=== PATIENT | male | born 1975 | race Caucasian/White ===

== ENCOUNTER 2024-09-26 11:13 | Emergency (ER) | payer OTHER, SELFPAY ==
--- OUTSIDE RECORDS SUMMARY | 2024-09-26 11:17 | XMS REPORT | Continuity of Care Document ---
Author Name Unknown Address [address] [facility] [place] [address] [facility] [place] Address [address] [facility] [place] [address] Care Team Providers Care Tire Stripper Name Role Phone Halle TABOR, Nikki Primary Care Physic dhara [phone] Problems Condition Name Condition Details Condition Category Status Onset Date Resolution Date Last Treatment Date Treating Clinician Comments Source Elevated blood pressure reading in office with white coat syndrome, with diagnosis of hypertensi on Elevated blood pressure reading in office with white coat syndrome, with diagnosis of hypertensi on Problem Active [facility] Fatty liver Fatty liver Problem Active [facility] BMI 32.0-32.9, adult BMI 32.0-32.9, adult Problem Active [facility] Allergic rhinitis Allergic rhinitis Problem Active [facility] Elevated liver enzymes Elevated liver enzymes Problem Active [facility] Hyperlipid emia Hyperlipid emia Problem Active [facility] GERD (gastroeso phageal reflux disease) GERD (gastroeso phageal reflux disease) Problem Active [facility] Migraine without aura Migraine without aura Problem Active [facility] Allergies, Adverse Reactions, Alerts Allergy Name Allergy Type Status Severity Reaction(s) Onset Date Inactive Date Treating Clinician Comments Source Sulfa (Sulfona mide Antibiot ics) Propensi ty to adverse reaction to drug Active 01-23 00:00: 00 Rock Stanford Sulfa Antibiot ics - CLASS Propensi ty to adverse reaction to drug Active 5-15 00:00: 00 Rock Stanford Sulfa Adverse Reaction Active Info Not Available [facility] PCN Adverse Reaction Active Info Not Available [facility] Medications Ordered Medication Name Filled Medication Name Start Date Stop Date Current Medication? Ordering Clinician Indication Dosage Frequency Signature (SIG) Comments Components Source diclofenac 1 % topical gel 07-25 00:00: 00 Yes 1% Rock [facility] amlodipine 5 mg tablet 07-24 00:00: 00 Yes 1mg Rock [facility] lisinopril 10 mg tablet 07-24 00:00: 00 Yes 1mg Rock [facility] metformin 500 mg tablet 07-24 00:00: 00 Yes 1mg Rock Stanford pravastatin 10 mg tablet 07-24 00:00: 00 Yes 1mg [facility] amlodipine 5 mg tablet 2023-06 00:00: 00 Yes 1mg Rock [facility] lisinopril 10 mg tablet 2023-06 00:00: 00 Yes 1mg Rock [facility] metformin 500 mg tablet 2023-06 00:00: 00 Yes 1mg Rock [facility] pravastatin 10 mg tablet 2023-06 0 00:00: 00 Yes 1mg Rock [facility] pravastatin 10 mg tablet 8 00:00: 00 Yes 1mg Rock [facility] amlodipine 5 mg tablet 01-19 00:00: 00 Yes 1mg Rock [facility] lisinopril 10 mg tablet 01-19 00:00: 00 Yes 1mg Rock [facility] metformin 500 mg tablet 01-19 00:00: 00 Yes 1mg Rock [facility] TAKE 1 TABLET DAILY. 07-28 00:00: 00 Yes 10 Rock [facility] TAKE 1 TABLET TWICE DAILY WITH FOOD. 07-28 00:00: 00 Yes 500 Rock [facility] TAKE 1 TABLET BY MOUTH EVERY DAY 07-28 00:00: 00 Yes 5 [facility] METFORMIN 500MG 07-20 00:00: 00 11-02 00:00 :00 No [facility] LISINOPRIL 10MG 2022-06 00:00: 00 11-02 00:00 :00 No 10 Rock [facility] TAKE 1 TABLET TWICE DAILY WITH FOOD. 2022-06 0-18 00:00: 00 11-02 00:00 :00 No 500 [facility] TAKE 1 TABLET TWICE DAILY WITH FOOD. 01-24 00:00: 00 11-02 00:00 :00 No 500 Rock [facility] METFORMIN 500MG 7- 00:00: 00 11-02 00:00 :00 No Rock [facility] TAKE 1 TABLET BY MOUTH EVERY DAY 0 7- 00:00: 00 11-02 00:00 :00 No 5 Rock [facility] AMLODIPINE 5MG -06 00:00: 00 11-02 00:00 :00 No 5000 Rock Stanford TAKE 1 TABLET DAILY. 12-30 00:00: 00 11-02 00:00 :00 No 10 Rock [facility] TAKE 1 TABLET DAILY 08 00:00: 00 11-02 00:00 :00 No [facility] AMLODIPINE 5MG -06 00:00: 00 11-02 00:00 :00 No Rock [facility] TAKE 1 TABLET BY MOUTH EVERY DAY 0 5-15 00:00: 00 11-02 00:00 :00 No 5 [facility] LISINOPRIL 10MG 0 5-12 00:00: 00 11-02 00:00 :00 No [facility] Amlodipine Besylate Amlodipine Besylate 6-05 00:00: 00 Yes Na Driscoll 1 tablet [facility] Lisinopril Lisinopril 2018-1 0-24 00:00: 00 Yes Na Driscoll 1 tablet [facility] Lisinopril Lisinopril Yes Na Driscoll TA KE 1 TABLET BY MOUTH EVERY DAY [facility] Prilosec Prilosec Yes Na Driscoll 1 capsule [facility] Lisinopril Lisinopril Yes Na Driscoll 1 tablet [facility] Vital Signs Vital Name Observation Time Observation Value Comments S suzie BP Systolic 2024-07-24 10:19:00 147 mm[Hg] Step hen F Abdoulaye BP Diastolic 2024-07-24 10:19:00 100 mm[Hg] Matthew phen F Abdoulaye Weight Measured 2024-07-24 10:19:00 212.60 pounds Rock F Abdoulaye Height Measured 2024-07-24 10:19:00 68.90 inches Rock F Abdoulaye Body Temperature 2024-07-24 10:19:00 99.10 degrees Rock F Abdoulaye Heart Rate 2024-07-24 10:19:00 101.00 /min Step hen F Abdoulaye Respiratory Rate 2024-07-24 10:19:00 Rock F Abdoulaye BP Systolic 2024-04-17 10:18:00 141 mm[Hg] Step hen F Abdoulaye BP Diastolic 2024-04-17 10:18:00 84 mm[Hg] Matthew phen F Abdoulaye Weight Measured 2024-04-17 10:18:00 208.60 pounds Rock F Abdoulaye Height Measured 2024-04-17 10:18:00 68.90 inches Rock F Abdoulaye Body Temperature 2024-04-17 10:18:00 97.90 degrees Rock F Abdoulaye Heart Rate 2024-04-17 10:18:00 89.00 /min Darlene en F Abdoulaye Respiratory Rate 2024-04-17 10:18:00 Rock F Abdoulaye BP Systolic 2024-01-24 09:24:00 137 mm[Hg] Step hen F Abdoulaye BP Diastolic 2024-01-24 09:24:00 88 mm[Hg] Matthew phen F Abdoulaye Weight Measured 2024-01-24 09:24:00 204.60 pounds Rock F Abdoulaye Height Measured 2024-01-24 09:24:00 68.90 inches Rock F Abdoulaye Body Temperature 2024-01-24 09:24:00 97.20 degrees Rock F Abdoulaye Heart Rate 2024-01-24 09:24:00 67.00 /min Darlene en F Abdoulaye Respiratory Rate 2024-01-24 09:24:00 Rock F Abdoulaye BP Systolic 2023-07-28 11:00:00 122 mm[Hg] Step hen F Abdoulaye BP Diastolic 2023-07-28 11:00:00 69 mm[Hg] Matthew phen F Abdoulaye Weight Measured 2023-07-28 11:00:00 197.20 pounds Rock F Abdoulaye Height Measured 2023-07-28 11:00:00 68.90 inches Rock F Abdoulaye Body Temperature 2023-07-28 11:00:00 98.60 degrees Rock F Abdoulaye Heart Rate 2023-07-28 11:00:00 89.00 /min Darlene en F Abdoulaye Respiratory Rate 2023-07-28 11:00:00 Rock F Abdoulaye BP Systolic 2023-04-14 11:15:00 138 mm[Hg] Step hen F Abdoulaye BP Diastolic 2023-04-14 11:15:00 91 mm[Hg] Matthew phen F Abdoulaye Weight Measured 2023-04-14 11:15:00 212.40 pounds Rock F Abdoulaye Height Measured 2023-04-14 11:15:00 68.90 inches Rock F Abdoulaye Body Temperature 2023-04-14 11:15:00 98.10 degrees Rock F Abdoulaye Heart Rate 2023-04-14 11:15:00 90.00 /min Darlene en F Abdoulaye Respiratory Rate 2023-04-14 11:15:00 Rock F Abdoulaye BP Systolic 2023-01-27 14:10:00 144 mm[Hg] Step hen F Abdoulaye BP Diastolic 2023-01-27 14:10:00 88 mm[Hg] Matthew phen F Abdoulaye Weight Measured 2023-01-27 14:10:00 209.20 pounds Rock F Abdoulaye Height Measured 2023-01-27 14:10:00 68.90 inches Rock F Abdoulaye Body Temperature 2023-01-27 14:10:00 97.70 degrees Rock F Abdoulaye Heart Rate 2023-01-27 14:10:00 97.00 /min Darlene en F Abdoulaye Respiratory Rate 2023-01-27 14:10:00 18.00 /min Rock F Abdoulaye BP Systolic 2023-01-20 16:02:00 141 mm[Hg] Step hen F Abdoulaye BP Diastolic 2023-01-20 16:02:00 94 mm[Hg] Matthew phen F Abdoulaye Weight Measured 2023-01-20 16:02:00 209.20 pounds Rock F Abdoulaye Height Measured 2023-01-20 16:02:00 68.90 inches Rock F Abdoulaye Body Temperature 2023-01-20 16:02:00 97.60 degrees Rock [facility] Heart Rate 2023-01-20 16:02:00 107.00 /min Burt Stanford Respiratory Rate 2023-01-20 16:02:00 Rock [facility] BP Systolic 2022-11-09 09:10:00 157 mm[Hg] Burt Stanford BP Diastolic 2022-11-09 09:10:00 115 mm[Hg] Matthew Stanford Weight Measured 2022-11-09 09:10:00 214.20 pounds Rock Stanford Height Measured 2022-11-09 09:10:00 68.90 inches Rock Stanford Body Temperature 2022-11-09 09:10:00 97.80 degrees Rock Stanford Heart Rate 2022-11-09 09:10:00 110.00 /min Burt Stanford Respiratory Rate 2022-11-09 09:10:00 [facility] Procedures Procedure Date / Time Performed Performing Clinicia n Source [id number] Ekg W/ At Least 12 Leads W/ I r 2022-11-09 00:00:00 Rock [facility] Encounters Start Date/Time End Date/Time Encounter Type Admission Type Attending [facility] Facility Care Department Encounter ID Source 2024-09-26 10:29:46 2024-09-26 10:29:46 Outpatient [facility] [id number] Rock [facility] 2024-07-24 10:18:41 2024-07-24 10:18:41 Outpatient [facility] [id number] Rock [facility] 2024-07-24 00:00:00 2024-07-24 00:00:00 Outpatient Visit [facility] [id number] Rock [facility] 2024-04-17 10:17:30 2024-04-17 10:17:30 Outpatient [facility] [id number] Rock Stanford 2024-04-17 00:00:00 2024-04-17 00:00:00 Outpatient Visit [facility] [id number] Rock [facility] 2024-01-24 09:12:12 2024-01-24 09:12:12 Outpatient [facility] [id number] Rock [facility] 2024-01-24 00:00:00 2024-01-24 00:00:00 Outpatient Visit [facility] [id number] Rock [facility] 2023-07-28 10:35:07 2023-07-28 10:35:07 Outpatient [facility] [id number] Rock Stanford 2023-04-14 11:02:17 2023-04-14 11:02:17 Outpatient [facility] [id number] Rock Stanford 2023-01-27 14:07:45 2023-01-27 14:07:45 Outpatient [facility] [id number] Rock Stanford 2023-01-20 15:57:38 2023-01-20 15:57:38 Outpatient [facility] [id number] Rock [facility] 2022-11-09 09:06:12 2022-11-09 09:06:12 Outpatient [facility] [id number] Rock Stanford 2018-11-30 11:00:00 2018-11-30 11:00:00 Outpatient [facility] [id number] [facility] Results Test Description Test Time Test Comments Results Result Co mments Source LIPID [id number] 05:12:34* Test Item Value Reference Range Interpretation Comme nts CHOLESTEROL (test code = 2210) 230 MG/DL <200 H TRIGLYCERIDES (test code = 2232) 188 MG/DL <150 H HDL CHOLESTEROL (test code = 2220) 37 MG/DL >39 L CALC LDL CHOL (test code = 2237) 159 MG/DL <100 H NOTE: CALCULATED LDL IS BASED ON ALAN-GUILLEN METHOD WHICHINCLUDES ADJUSTABLE TRIGLYCERIDE:VLDL CHOLESTEROL RATIO.THIS FACTOR VARIES BY MEASURED TRIGLYCERIDE AND NON-HDLCHOLESTEROL CONCENTRATIONS WITH INCREASED CALCULATED LDL SEENIN HIGHER TRIGLYCERIDE OR LOWER NON-HDL SPECIMENS. FOR MOREINFORMATION, SEE CLIENT ANNOUNCEMENT AT [email or web address] [email or web address] RATIO LDL/HDL (test code = 2238) 4.30 RATIO <3.55 H UNLESS OTHERW ISE INDICATED, ALL TESTING PERFORMED AT [facility] [address] [place] [address] MACHINE FARMWORKER: MIRZA ACEVES M.D. IA NUMBER [id number] [place]. [id number] HEMOGLOBIN [id number] 03:14:37* Test Item Value Reference Range Interpretation Comme nts HEMOGLOBIN A1c (test code = 62849) 6.0 % 4.2-5.6 H [employer] GUIDELINES FOR HGB A1C: PREDIABETES/INCREASED RISK . . . . . . . 5.7-6.4% DIAGNOSIS OF DIABETES . . . . . . . . . >=6.5% WITH CONFIRMATION OR APPROPRIATE SYMPTOMS NOTE: ASSAY MAY BE AFFECTED BY HEMOGLOBINOPATHIES (SICKLE CELL ANEMIA, S-C DISEASE, OTHERS) OR ARTIFICIALLY LOWERED BY DECREASED RED CELL SURVIVAL (HEMOLYTIC ANEMIAS, BLOOD LOSS, ETC.). CONSIDER ALTERNATE TESTING OR LABORATORY CONSULTATION. COMPREHENSIVE METABOLIC [id number] 00:00:00* Test Item Value Reference Range Interpretation Comme nts GLUCOSE (test code = 2217) 119 MG/DL BUN (test code = 2208) 19 MG/DL CREATININE (test code = 2214) 1.35 MG/DL eGFR (2020 CKD-EPI) (test co de = 67249) 64 ML/MIN/1.73 CALC BUN/CREAT (test code = 2235) 14 RATIO SODIUM (test code = 2231) 140 MEQ/L POTASSIUM (test code = 2228) 4.4 MEQ/L CHLORIDE (test code = 2215) 101 MEQ/L CARBON DIOXIDE (test code = 2206) 27 MEQ/L CALCIUM (test code = 2209) 9.9 MG/DL PROTEIN, TOTAL (test code = 2229) 7.4 G/DL ALBUMIN (test code = 2201) 4.7 G/DL CALC GLOBULIN (test code = 2240) 2.7 G/DL CALC A/G RATIO (test code = 2234) 1.7 RATIO BILIRUBIN, TOTAL (test code = 2207) 0.8 MG/DL ALKALINE PHOSPHATASE (test code = 2204) 54 U/L AST (test code = 2218) 27 U/L ALT (test code = 2219) 34 U/L Rock F AustinHEMOGLOBIN [id number] 00:00:00* Test Item Value Reference Range Interpretation Comme moe HEMOGLOBIN A1c (test code = 06134) 6.0 % Rock StanfordLIPID [id number] 00:00:00* Test Item Value Reference Range Interpretation Comme nts CHOLESTEROL (test code = 2210) 230 MG/DL TRIGLYCERIDES (test code = 2232) 188 MG/DL HDL CHOLESTEROL (test code = 2220) 37 MG/DL CALC LDL CHOL (test code = 2237) 159 MG/DL RISK RATIO LDL/HDL (test cod e = 2238) 4.30 RATIO Rock StanfordALBUMIN/CREATININE RATIO, URINE, [id number] 05:49:27* Test Item Value Reference Range Interpretation Comme nts CREATININE, URINE, CONC. (test code = 2072) 236.0 MG/DL NOT ESTAB ALBUMIN, URINE, RANDOM (test code = 76388) 56.0 MG/DL NOT ESTAB CALC ALBUMIN/CREAT, RND (test code = 72156) 237 MG/G <30 H Note: Albumin/Creatinine ratio reference interval reflects ADA and NKF guidelines. HEMOGLOBIN [id number] 04:08:30* Test Item Value Reference Range Interpretation Comme nts HEMOGLOBIN A1c (test code = 50960) 5.7 % 4.2-5.6 H [employer] GUIDELINES FOR HGB A1C: PREDIABETES/INCREASED RISK . . . . . . . 5.7-6.4% DIAGNOSIS OF DIABETES . . . . . . . . . >=6.5% WITH CONFIRMATION OR APPROPRIATE SYMPTOMS NOTE: ASSAY MAY BE AFFECTED BY HEMOGLOBINOPATHIES (SICKLE CELL ANEMIA, S-C DISEASE, OTHERS) OR ARTIFICIALLY LOWERED BY DECREASED RED CELL SURVIVAL (HEMOLYTIC ANEMIAS, BLOOD LOSS, ETC.). CONSIDER ALTERNATE TESTING OR LABORATORY CONSULTATION. HIV 1/2 4TH GEN, RFLX [id number] 03:55:04* Test Item Value Reference Range Interpretation Comme nts HIV 1/2 4TH GEN, RFLX CONF (test code = 3514) NON-REACTIVE NON-REACTIVE UNLESS OTHERWISE INDICATED, ALL TESTING PERFORMED AT [facility] [address] [place] [address] MACHINE FARMWORKER: MIRZA ACEVES M.D. CLIA NUMBER [id number] [place]. [id number] COMPREHENSIVE METABOLIC [id number] 03:33:13* Test Item Value Reference Range Interpretation Comme nts GLUCOSE (test code = 2217) 102 MG/DL 70-99 H BUN (test code = 220) 14 MG/DL 6-20 CREATININE (test code = 2214) 1.27 MG/DL 0.80-1.40 eGFR (2020 CKD-EPI) (test co de = 16612) 69 ML/MIN/1.73 >60 CALC BUN/CREAT (test code = 2235) 11 RATIO 6-28 SODIUM (test code = 223) 139 MEQ/L 133-146 POTASSIUM (test code = 2228) 4.3 MEQ/L 3.5-5.4 CHLORIDE (test code = 2215) 100 MEQ/L 95-107 CARBON DIOXIDE (test code = 2206) 24 MEQ/L 19-31 CALCIUM (test code = 2209) 10.1 MG/DL 8.5-10.5 PROTEIN, TOTAL (test code = 2229) 7.4 G/DL 6.1-8.3 ALBUMIN (test code = 2201) 4.7 G/DL 3.5-5.2 CALC GLOBULIN (test code = 2240) 2.7 G/DL 1.9-3.7 CALC A/G RATIO (test code = 2234) 1.7 RATIO 1.0-2.6 BILIRUBIN, TOTAL (test code = 2207) 0.6 MG/DL <=1.2 ALKALINE PHOSPHATASE (test code = 2204) 52 U/L 40-118 AST (test code = 2218) 24 U/L 9-50 ALT (test code = 2219) 29 U/L 5-50 LIPID [id number] 03:33:13* Test Item Value Reference Range Interpretation Comme nts CHOLESTEROL (test code = 2210) 216 MG/DL <200 H TRIGLYCERIDES (test code = 2232) 194 MG/DL <150 H HDL CHOLESTEROL (test code = 2220) 43 MG/DL >39 CALC LDL CHOL (test code = 2237) 140 MG/DL <100 H NOTE: CALCULATED LDL IS BASED ON ALAN-GUILLEN METHOD WHICHINCLUDES ADJUSTABLE TRIGLYCERIDE:VLDL CHOLESTEROL RATIO.THIS FACTOR VARIES BY MEASURED TRIGLYCERIDE AND NON-HDLCHOLESTEROL CONCENTRATIONS WITH INCREASED CALCULATED LDL SEENIN HIGHER TRIGLYCERIDE OR LOWER NON-HDL SPECIMENS. FOR MOREINFORMATION, SEE CLIENT ANNOUNCEMENT AT [email or web address] [email or web address] RATIO LDL/HDL (test code = 2238) 3.26 RATIO <3.55 COMPREHENSIVE METABOLIC [id number] 00:00:00* Test Item Value Reference Range Interpretation Comme nts GLUCOSE (test code = 2217) 102 MG/DL BUN (test code = 2208) 14 MG/DL CREATININE (test code = 2214) 1.27 MG/DL eGFR (2020 CKD-EPI) (test co de = 76065) 69 ML/MIN/1.73 CALC BUN/CREAT (test code = 2235) 11 RATIO SODIUM (test code = 2231) 139 MEQ/L POTASSIUM (test code = 2228) 4.3 MEQ/L CHLORIDE (test code = 2215) 100 MEQ/L CARBON DIOXIDE (test code = 2206) 24 MEQ/L CALCIUM (test code = 2209) 10.1 MG/DL PROTEIN, TOTAL (test code = 2229) 7.4 G/DL ALBUMIN (test code = 2201) 4.7 G/DL CALC GLOBULIN (test code = 2240) 2.7 G/DL CALC A/G RATIO (test code = 2234) 1.7 RATIO BILIRUBIN, TOTAL (test code = 2207) 0.6 MG/DL ALKALINE PHOSPHATASE (test code = 2204) 52 U/L AST (test code = 2218) 24 U/L ALT (test code = 2219) 29 U/L Rock StanfordLIPID [id number] 00:00:00* Test Item Value Reference Range Interpretation Comme nts CHOLESTEROL (test code = 2210) 216 MG/DL TRIGLYCERIDES (test code = 2232) 194 MG/DL HDL CHOLESTEROL (test code = 2220) 43 MG/DL CALC LDL CHOL (test code = 2237) 140 MG/DL RISK RATIO LDL/HDL (test cod e = 2238) 3.26 RATIO Rock StanfordHEMOGLOBIN [id number] 00:00:00* Test Item Value Reference Range Interpretation Comme nts HEMOGLOBIN A1c (test code = 40150) 5.7 % Rock Delcid AbdoulayeALBUMIN/CREATININE RATIO, RANDOM [id number] 00:00:00* Test Item Value Reference Range Interpretation Comme nts CREATININE, URINE, CONC. (te st code = 2072) 236.0 MG/DL ALBUMIN, URINE, RANDOM (test code = 29403) 56.0 MG/DL CALC ALBUMIN/CREAT, RND (jose a t code = 85730) 237 MG/G Rock StanfordHIV 1/2 4TH GEN, RFLX [id number] 00:00:00* Test Item Value Reference Range Interpretation Comme nts HIV 1/2 4TH GEN, RFLX CONF ( test code = 3514) NON-REACTIVE Rock StanfordCOMPREHENSIVE METABOLIC [id number] 00:00:00* Test Item Value Reference Range Interpretation Comme nts GLUCOSE (test code = 2217) 102 MG/DL BUN (test code = 2208) 14 MG/DL CREATININE (test code = 2214) 1.27 MG/DL eGFR (2020 CKD-EPI) (test co de = 55024) 69 ML/MIN/1.73 CALC BUN/CREAT (test code = 2235) 11 RATIO SODIUM (test code = 2231) 139 MEQ/L POTASSIUM (test code = 2228) 4.3 MEQ/L CHLORIDE (test code = 2215) 100 MEQ/L CARBON DIOXIDE (test code = 2206) 24 MEQ/L CALCIUM (test code = 2209) 10.1 MG/DL PROTEIN, TOTAL (test code = 2229) 7.4 G/DL ALBUMIN (test code = 2201) 4.7 G/DL CALC GLOBULIN (test code = 2240) 2.7 G/DL CALC A/G RATIO (test code = 2234) 1.7 RATIO BILIRUBIN, TOTAL (test code = 2207) 0.6 MG/DL ALKALINE PHOSPHATASE (test code = 2204) 52 U/L AST (test code = 2218) 24 U/L ALT (test code = 2219) 29 U/L Rock StanfordLIPID [id number] 00:00:00* Test Item Value Reference Range Interpretation Comme nts CHOLESTEROL (test code = 2210) 216 MG/DL TRIGLYCERIDES (test code = 2232) 194 MG/DL HDL CHOLESTEROL (test code = 2220) 43 MG/DL CALC LDL CHOL (test code = 2237) 140 MG/DL RISK RATIO LDL/HDL (test cod e = 2238) 3.26 RATIO Rock StanfordHEMOGLOBIN [id number] 00:00:00* Test Item Value Reference Range Interpretation Comme moe HEMOGLOBIN A1c (test code = 35437) 5.7 % Rock StanfordALBUMIN/CREATININE RATIO, RANDOM [id number] 00:00:00* Test Item Value Reference Range Interpretation Comme moe CREATININE, URINE, CONC. (te st code = 2072) 236.0 MG/DL ALBUMIN, URINE, RANDOM (test code = 39141) 56.0 MG/DL CALC ALBUMIN/CREAT, RND (jose a t code = 19836) 237 MG/G Rock StanfordHIV 1/2 4TH GEN, RFLX [id number] 00:00:00* Test Item Value Reference Range Interpretation Comme moe HIV 1/2 4TH GEN, RFLX CONF ( test code = 3514) NON-REACTIVE Rock StanfordCOMPREHENSIVE METABOLIC [id number] 00:00:00* Test Item Value Reference Range Interpretation Comme moe GLUCOSE (test code = 2217) 102 MG/DL BUN (test code = 2208) 14 MG/DL CREATININE (test code = 2214) 1.27 MG/DL eGFR (2020 CKD-EPI) (test co de = 28732) 69 ML/MIN/1.73 CALC BUN/CREAT (test code = 2235) 11 RATIO SODIUM (test code = 2231) 139 MEQ/L POTASSIUM (test code = 2228) 4.3 MEQ/L CHLORIDE (test code = 2215) 100 MEQ/L CARBON DIOXIDE (test code = 2206) 24 MEQ/L CALCIUM (test code = 2209) 10.1 MG/DL PROTEIN, TOTAL (test code = 2229) 7.4 G/DL ALBUMIN (test code = 2201) 4.7 G/DL CALC GLOBULIN (test code = 2240) 2.7 G/DL CALC A/G RATIO (test code = 2234) 1.7 RATIO BILIRUBIN, TOTAL (test code = 2207) 0.6 MG/DL ALKALINE PHOSPHATASE (test code = 2204) 52 U/L AST (test code = 2218) 24 U/L ALT (test code = 2219) 29 U/L Rock StanfordLIPID [id number] 00:00:00* Test Item Value Reference Range Interpretation Comme nts CHOLESTEROL (test code = 2210) 216 MG/DL TRIGLYCERIDES (test code = 2232) 194 MG/DL HDL CHOLESTEROL (test code = 2220) 43 MG/DL CALC LDL CHOL (test code = 2237) 140 MG/DL RISK RATIO LDL/HDL (test cod e = 2238) 3.26 RATIO Rock StanfordHEMOGLOBIN [id number] 00:00:00* Test Item Value Reference Range Interpretation Comme moe HEMOGLOBIN A1c (test code = 39338) 5.7 % Rock Delcid AustinALBUMIN/CREATININE RATIO, RANDOM [id number] 00:00:00* Test Item Value Reference Range Interpretation Comme moe CREATININE, URINE, CONC. (te st code = 2072) 236.0 MG/DL ALBUMIN, URINE, RANDOM (test code = 56216) 56.0 MG/DL CALC ALBUMIN/CREAT, RND (jose a t code = 26307) 237 MG/G Rock Delcid AustinHIV 1/2 4TH GEN, RFLX [id number] 00:00:00* Test Item Value Reference Range Interpretation Comme moe HIV 1/2 4TH GEN, RFLX CONF ( test code = 3514) NON-REACTIVE Rock StanfordHEMOGLOBIN [id number] 00:00:00* Test Item Value Reference Range Interpretation Comme moe HEMOGLOBIN A1c (test code = 93568) 6.5 % Rock Delcid AustinHEMOGLOBIN [id number] 00:00:00* Test Item Value Reference Range Interpretation Comme moe HEMOGLOBIN A1c (test code = 00998) 6.5 % Rock Delcid AustinHEMOGLOBIN [id number] 00:00:00* Test Item Value Reference Range Interpretation Comme moe HEMOGLOBIN A1c (test code = 02532) 6.5 % Rock Delcid AustinHEMOGLOBIN [id number] 04:58:55* Test Item Value Reference Range Interpretation Comme moe HEMOGLOBIN A1c (test code = 47317) 7.5 % 4.2-5.6 H [employer] GUIDELINES FOR HGB A1C: PREDIABETES/INCREASED RISK . . . . . . . 5.7-6.4% DIAGNOSIS OF DIABETES . . . . . . . . . >=6.5% WITH CONFIRMATION OR APPROPRIATE SYMPTOMS NOTE: ASSAY MAY BE AFFECTED BY HEMOGLOBINOPATHIES (SICKLE CELL ANEMIA, S-C DISEASE, OTHERS) OR ARTIFICIALLY LOWERED BY DECREASED RED CELL SURVIVAL (HEMOLYTIC ANEMIAS, BLOOD LOSS, ETC.). CONSIDER ALTERNATE TESTING OR LABORATORY CONSULTATION. UNLESS OTHERWISE INDICATED, ALL TESTING PERFORMED AT [facility] [address] [place] [id number] [employer]ACHINE FARMWORKER: MIRZA ACEVES M.D. CLIA NUMBER [id number] [facility] [place] [id number] HEPATIC FUNCTION [id number] 04:43:26* Test Item Value Reference Range Interpretation Comme nts PROTEIN, TOTAL (test code = 2229) 7.6 G/DL 6.1-8.3 ALBUMIN (test code = 2201) 5.1 G/DL 3.5-5.2 BILIRUBIN, TOTAL (test code = 2207) 0.6 MG/DL See_Comment [Automated Project Playlist] The system which generated this result transmitted reference range: <=1.2. The reference range was not used to interpret this result as normal/abnormal. BILIRUBIN, DIRECT (test code = 2021) 0.1 MG/DL 0.0-0.3 ALKALINE PHOSPHATASE (test code = 2204) 59 U/L 40-118 AST (test code = 2218) 28 U/L 9-50 ALT (test code = 2219) 40 U/L 5-50 LIVER (HEPATIC) FUNCTION [id number] 00:00:00* Test Item Value Reference Range Interpretation Comme nts PROTEIN, TOTAL (test code = 2229) 7.6 G/DL ALBUMIN (test code = 2201) 5.1 G/DL BILIRUBIN, TOTAL (test code = 2207) 0.6 MG/DL BILIRUBIN, DIRECT (test code = 2021) 0.1 MG/DL ALKALINE PHOSPHATASE (test c ode = 2204) 59 U/L AST (test code = 2218) 28 U/L ALT (test code = 2219) 40 U/L Rock StanfordHEMOGLOBIN [id number] 00:00:00* Test Item Value Reference Range Interpretation Comme nts HEMOGLOBIN A1c (test code = 47958) 7.5 % Rock StanfordLIVER (HEPATIC) FUNCTION [id number] 00:00:00* Test Item Value Reference Range Interpretation Comme nts PROTEIN, TOTAL (test code = 2229) 7.6 G/DL ALBUMIN (test code = 2201) 5.1 G/DL BILIRUBIN, TOTAL (test code = 2207) 0.6 MG/DL BILIRUBIN, DIRECT (test code = 2022) 0.1 MG/DL ALKALINE PHOSPHATASE (test c ode = 2204) 59 U/L AST (test code = 2218) 28 U/L ALT (test code = 2219) 40 U/L Rock StanfordHEMOGLOBIN [id number] 00:00:00* Test Item Value Reference Range Interpretation Comme nts HEMOGLOBIN A1c (test code = 28208) 7.5 % Rock StanfordLIVER (HEPATIC) FUNCTION [id number] 00:00:00* Test Item Value Reference Range Interpretation Comme nts PROTEIN, TOTAL (test code = 2229) 7.6 G/DL ALBUMIN (test code = 2201) 5.1 G/DL BILIRUBIN, TOTAL (test code = 2207) 0.6 MG/DL BILIRUBIN, DIRECT (test code = 2022) 0.1 MG/DL ALKALINE PHOSPHATASE (test c ode = 2204) 59 U/L AST (test code = 2218) 28 U/L ALT (test code = 2219) 40 U/L Rock Bhavin StanfordHEMOGLOBIN [id number] 00:00:00* Test Item Value Reference Range Interpretation Comme nts HEMOGLOBIN A1c (test code = 73262) 7.5 % Rock Stanford Notes Date/Time Note Provider Source Rock Torres [facility]2024-10-21 00:00:00 Rock Torres [facility]2024-07-29 00:00:00 Rock Torres [facility]
[2024-09-26 11:59] LABS: Absolute Basophils 0.1 K/uL (0-0.5); Absolute Eosinophils 0.1 K/uL (0-0.5); Absolute Lymphocytes (CBC) 2.1 K/uL (0.7-4.9); Absolute Monocytes 0.5 K/uL (0.1-1.3); Absolute Neutrophil 6.5 K/uL (1.8-8.0); Basophils % 1.2 % (0-1.3); Eosinophils % 0.8 % (0-4.4); Hematocrit 49.9 % (39.6-49.0); Hemoglobin 18.5 g/dL (13.6-17.9); Lymphocytes % 22.7 % (15.3-44.8); MCH 31.7 pg (27.0-35.0); MCHC 37.1 g/dL (32.0-36.0); MCV 85.6 fL (80-100); MPV 9.6 fL (7.6-11.3); Monocytes % 5.7 % (3.3-12.3); Neutrophils % 69.6 % (41.7-73.7); Nucleated Red Blood Cells % 0.2 % (0-0); Platelets 193 thou/uL (152-406); RBC Red Blood Cell Count 5.83 M/uL (4.33-5.43)
[2024-09-26 12:23] LABS: Albumin 4.2 g/dL (3.4-5.0); Albumin/Globulin Ratio 1.2 (1.1-1.8); Anion Gap 8.1 mEq/L (5.0-15.0); Bilirubin Direct 0.2 mg/dL (0-0.2); Bilirubin Indirect, Calculated 0.5 mg/dL (0.2-0.8); Bilirubin Total 0.7 mg/dL (0.2-1.0); Globulin 3.6 g/dL (2.3-3.5); Magnesium 1.9 mg/dL (1.6-2.4); Potassium 4.1 mEq/L (3.5-5.1); Protein, Total 7.8 g/dL (6.4-8.2); Troponin High Sensitivity 7.7 pg/mL (<58.9)
--- NOTE | 2024-09-26 12:53 | RAD REPORT ---
EXAMINATION: ONE VIEW CHEST XR CLINICAL INDICATION: Male, 49 years old.,CHEST PAIN TECHNIQUE: Frontal chest projection is submitted. Examination is limited by patient positioning and t echnique. COMPARISON: No prior exam. FINDINGS: The lungs are well inflated and clear. No pneumothorax or sizable effusion. The heart is normal in s ize. Mediastinal contours are unremarkable. IMPRESSION: No acute intrathoracic abnormalities.
[2024-09-26] MEDS ORDERED: ASPIRIN 81 MG CHEWABLE TABLET ONE (13:02)
[2024-09-26] MEDS ORDERED: NA CHLORIDE 0.9% 1,000 ML ONE (15:59)
--- NOTE | 2024-09-26 16:58 | EDPHYS ---
Physician Documentation [facility] Name: Mj Lindsey Age: 49 yrs Sex: Male : 1975 Arrival Date: 09/26/2024 Time: 11:13 Bed 10 Private MD: ED Physician Christie Chavez HPI: 09/26 12:08 This 49 yrs old Male presents to ER via Ambulatory with complaints of Chest Pain, Back ci Pain, Numbness Of Arm - both arms. 12:08 The patient has been recently seen by a physician: the patient's primary care provider. ci Patient is a 49-year-old male with PMH diabetes, hypertension, hyperlipidemia who presents from PCPs office for chest pain that began 45 minutes ago. Pain is midsternal, radiates to the back and elbow. No associated shortness of breath, diaphoresis, nausea/vomiting. Patient reports also had an episode of chest pain 2 days ago. Denies recent trauma/surgery, no prolonged immobility. No cough, wheezing, congestion.. Historical: - Allergies: 11:41 Sulfa (Sulfonamide Antibiotics); cm10 11:41 PENICILLINS; cm10 - PMHx: 11:41 Diabetes mellitus; Hypertensive disorder; Hypercholesterolemia; cm10 - Immunization history:: Adult Immunizations up to date. - Infectious Disease History:: Denies. - Social history:: Smoking status: unknown. Vital Signs: 11:39 BP 168 / 110; Pulse 107; Resp 18; Temp 98.5(O); Pulse Ox 98% on R/A; Weight 94.35 kg; cm10 Height 5 ft. 10 in. ; Pain 2/10; 16:26 BP 178 / 104; Pulse 84; Resp 16; Pulse Ox 98% on R/A; iw 17:21 BP 148 / 96; Pulse 74; Resp 16; Temp 98.1; Pulse Ox 100% on R/A; iw 11:39 Body Mass Index 29.84 (94.35 kg, 177.8 cm) cm10 11:39 Pain Scale: Adult cm10 MDM: 11:43 Medical Screening Exam initiated ci 16:55 ED course: Discussed with patient's PCP Dr. Mcduffie who wants patient lisinopril increased ci to 10 mg twice daily. Patient hypertensive with BP 178/104, concern for hypertensive urgency, given 10 mg IV hydralazine. Troponin negative x 2, EKG with nonspecific ST changes. Chest pain resolved in the ED on reassessment. Patient was tachycardic on arrival, D-dimer negative, no hypoxia, low suspicion for PE .Tachycardia resolved, HR 74. Given reassuring workup, okay to discharge with PCP and cardiology follow-up.. 17:24 Differential diagnosis: abnormal EKG, acute myocardial infarction, acute pericarditis, ci coronary artery disease congestive heart failure myocarditis, pericarditis, pneumonia, pneumothorax, stable angina, unstable angina. HEART Score: History: Moderately Suspicious (1), ECG: Non specific repolarization disturbance / LBTB / PM (1), Age: > 45 and < 65 years (1), Risk Factors: > or = 3 Risk factors for atherosclerotic disease (2), Troponin: < or = 1 x Normal Limit (0), Total Score = 5. The patient was given aspirin in the Emergency Department. Data reviewed: vital signs, nurses notes. Historians other than the Patient: Spouse/Significant Other: . Counseling: I had a detailed discussion with the patient and/or guardian regarding the presence of at least one elevated blood pressure reading (>120/80) during this emergency department visit, the need for outpatient follow up, to return to the emergency department if symptoms worsen or persist or if there are any questions or concerns that arise at home. 09/26 11:43 Order name: Basic Metabolic Panel; Complete Time: 13:43 ci 09/26 11:43 Order name: CBC with Diff; Complete Time: 13:43 ci 09/26 11:43 Order name: D-Dimer; Complete Time: 13:43 ci 09/26 11:43 Order name: LFT's; Complete Time: 13:43 ci 09/26 11:43 Order name: Magnesium; Complete Time: 13:43 ci 09/26 11:43 Order name: NT PRO-BNP; Complete Time: 13:43 ci 09/26 11:43 Order name: Troponin HS; Complete Time: 13:43 ci 09/26 15:51 Order name: Troponin High Sensitivity; Complete Time: 16:38 ci 09/26 11:43 Order name: XRAY Chest (1 view); Complete Time: 13:43 ci 09/26 13:43 Interpretation: No acute disease. ci 09/26 11:43 Order name: EKG; Complete Time: 11:44 ci 09/26 13:44 Interpretation: Abnormal: Sinus tachycardia, HR 109, non specific ST changes. ci 09/26 11:43 Order name: EKG - Nurse/Tech; Complete Time: 12:45 ci 09/26 11:43 Order name: IV Saline Lock; Complete Time: 11:53 ci 09/26 11:43 Order name: Labs collected and sent; Complete Time: 11:53 ci 09/26 11:43 Order name: O2 Per Protocol; Complete Time: 12:45 ci 09/26 11:43 Order name: O2 Sat Monitoring; Complete Time: 12:45 ci Administered Medications: 13:10 Drug: Aspirin PO Chewable Tablet 324 mg PO once; 81 mg tablets x 4 Route: PO; ld1 13:30 Follow up: Response: No adverse reaction iw 16:14 Drug: NS 0.9% IV 500 ml IV at 500 ml once; to be given as a bolus over 60 minutes iw Route: IV; Rate: 500 ml; Site: right antecubital; 17:15 Follow up: IV Status: Completed infusion iw 17:08 Drug: hydrALAZINE IVP 10 mg IVP once Route: IVP; Site: right antecubital; iw 17:30 Follow up: Response: No adverse reaction; Blood pressure is lowered iw Disposition Summary: 09/26/24 16:57 Discharge Ordered Notes: Location: Home ci Condition: Stable ci Diagnosis - Essential (primary) hypertension ci - Chest pain, unspecified ci - Acute kidney failure, unspecified ci Followup: ci - With: Private Physician - When: - Reason: Recheck today's complaints, Re-evaluation by your physician Discharge Instructions: - Discharge Summary Sheet ci - Nonspecific Chest Pain, Adult ci - Hypertension, Adult ci - Acute Kidney Injury, Adult ci Forms: - Medication Reconciliation Form ci - Antibiotic Education ci - Prescription Opioid Use ci - Patient Portal Instructions ci - Leadership Thank You Letter ci Signatures: Dispatcher [employer] Elizabeth Del Castillo RN RN iw Yaneth Grajeda RN RN ld1 Socorro Ruiz RN RN cm10 Christie Chavez ci Corrections: (The following items were deleted from the chart) 11:41 11:41 Allergies: PENICILLINS; cm10 cm10 11:41 11:41 Allergies: Sulfa (Sulfonamide Antibiotics); cm10 cm10 11:41 11:41 PMHx: Diabetes mellitus; cm10 cm10 11:41 11:41 PMHx: History of urinary tract infection; cm10 cm10 11:44 11:43 BASIC METABOLIC PANEL+C.LAB.BRZ ordered. EDMS EDMS 11:44 11:43 CBC+H.LAB.BRZ ordered. EDMS EDMS 11:44 11:43 D-DIMER+COAG.LAB.BRZ ordered. EDMS EDMS 11:44 11:43 HEPATIC FUNCTION+C.LAB.BRZ ordered. EDMS EDMS 11:44 11:43 MAGNESIUM+C.LAB.BRZ ordered. EDMS EDMS 11:44 11:43 PROBNP+C.LAB.BRZ ordered. EDMS EDMS 11:44 11:43 Troponin High Sensitivity+C.LAB.BRZ ordered. EDMS EDMS 17:30 16:55 ED course: Discussed with patient's PCP Dr. Mcduffie who wants patient lisinopril ci increased to 10 mg twice daily. Patient hypertensive with BP 178/104, concern for hypertensive urgency, given 10 mg IV hydralazine. Troponin negative x 2, EKG with no acute ischemic changes. Patient was tachycardic on arrival, D-dimer negative, no hypoxia, low suspicion for PE. Given negative workup, okay to discharge with PCP and cardiology follow-up.. ci
--- NOTE | 2024-09-26 16:58 | ER ---
Nurse's Notes [facility] Name: Mj Lindsey Age: 49 yrs Sex: Male : 1975 Arrival Date: 09/26/2024 Time: 11:13 Bed 10 Private MD: Diagnosis: Essential (primary) hypertension;Chest pain, unspecified;Acute kidney failure, unspecified Presentation: 09/26 11:39 Chief complaint: Patient states: Chest pain onset Wednesday. pt states that the pain is to cm10 the center of chest and radiates to back. Pt states that he is having bilateral arm numbness below the elbow. Pt sent to the ER by PCP. Coronavirus screen: Client denies travel out of the [place] in the last 14 days. Ebola Screen: Patient denies travel to an Ebola-affected area in the 21 days before illness onset. Initial Sepsis Screen: Does the patient meet any 2 criteria? HR > 90 bpm. Does the patient have a suspected source of infection? No. Patient's initial sepsis screen is negative. Risk Assessment: Do you want to hurt yourself or someone else? Patient reports no desire to harm self or others. Onset of symptoms was September 26, 2024. 11:39 Method Of Arrival: Ambulatory cm10 11:39 Acuity: AVERY 2 cm10 Triage Assessment: 11:41 General: Appears in no apparent distress. uncomfortable, Behavior is calm, cooperative. cm10 Neuro: No deficits noted. Level of Consciousness is awake, alert, obeys commands, Oriented to person, place, time, situation, Appropriate for age. Cardiovascular: Chest pain is described as Pain is 2 out of 10 on a pain scale. Respiratory: No deficits noted. Airway is patent Respiratory effort is even, unlabored, Respiratory pattern is regular, symmetrical. Historical: - Allergies: 11:41 Sulfa (Sulfonamide Antibiotics); cm10 11:41 PENICILLINS; cm10 - PMHx: 11:41 Diabetes mellitus; Hypertensive disorder; Hypercholesterolemia; cm10 - Immunization history:: Adult Immunizations up to date. - Infectious Disease History:: Denies. - Social history:: Smoking status: unknown. Screenin:15 [facility] ED Fall Risk Assessment (Adult) History of falling in the last 3 months, iw including since admission No falls in past 3 months (0 pts) Confusion or Disorientation No (0 pts) Intoxicated or Sedated No (0 pts) Impaired Gait No (0 pts) Mobility Assist Device Used No (0 pt) Altered Elimination No (0 pt) Score/Fall Risk Level 0 - 2 = Low Risk Oriented to surroundings, Maintained a safe environment. Abuse screen: Denies threats or abuse. Nutritional screening: No deficits noted. Tuberculosis screening: No symptoms or risk factors identified. Assessment: 16:14 General: Appears in no apparent distress. Behavior is calm, cooperative. Pain: Denies iw pain. Pain: Neuro: Level of Consciousness is awake, alert, obeys commands, Oriented to person, place, time, situation, Moves all extremities. Full function. Cardiovascular: Patient's skin is warm and dry. Respiratory: Respiratory effort is even, unlabored, Respiratory pattern is regular, symmetrical. GI: Abdomen is non-distended. Derm: Skin is intact, is healthy with good turgor. Musculoskeletal: Range of motion: intact in all extremities. Vital Signs: 11:39 BP 168 / 110; Pulse 107; Resp 18; Temp 98.5(O); Pulse Ox 98% on R/A; Weight 94.35 kg; cm10 Height 5 ft. 10 in. ; Pain 2/10; 16:26 BP 178 / 104; Pulse 84; Resp 16; Pulse Ox 98% on R/A; iw 17:21 BP 148 / 96; Pulse 74; Resp 16; Temp 98.1; Pulse Ox 100% on R/A; iw 11:39 Body Mass Index 29.84 (94.35 kg, 177.8 cm) cm10 11:39 Pain Scale: Adult cm10 ED Course: 11:18 Patient arrived in ED. al6 11:40 Triage completed. cm10 11:41 Arm band placed on right wrist. Patient placed in waiting room. EKG completed in cm10 triage. Results shown to MD. 11:42 Christie Chavez is Attending Physician. ci 11:42 EKG done, by ED staff, reviewed by Christie Chavez. cm10 11:53 Basic Metabolic Panel Sent. bc6 11:53 CBC with Diff Sent. bc6 11:53 D-Dimer Sent. bc6 11:53 LFT's Sent. bc6 11:53 Magnesium Sent. bc6 11:53 NT PRO-BNP Sent. bc6 11:53 Troponin HS Sent. 6 11:53 Initial lab(s) drawn, by me, sent to lab. Inserted saline lock: 20 gauge in right bc6 antecubital area, using aseptic technique. Blood collected. Flushed with 10 mL NS. 12:03 XRAY Chest (1 view) In Process Unspecified. EDMS 15:26 Elizabeth Oates, RN is Primary Nurse. iw 16:14 Patient has correct armband on for positive identification. Provided Education on: labs iw . Client placed on continuous cardiac and pulse oximetry monitoring. NIBP monitoring applied. 16:14 Troponin High Sensitivity Sent. iw 17:21 No provider procedures requiring assistance completed. IV discontinued, intact, iw bleeding controlled, No redness/swelling at site. Pressure dressing applied. Patient maintains SpO2 saturation greater than 95% on room air. Administered Medications: 13:10 Drug: Aspirin PO Chewable Tablet 324 mg PO once; 81 mg tablets x 4 Route: PO; ld1 13:30 Follow up: Response: No adverse reaction iw 16:14 Drug: NS 0.9% IV 500 ml IV at 500 ml once; to be given as a bolus over 60 minutes iw Route: IV; Rate: 500 ml; Site: right antecubital; 17:15 Follow up: IV Status: Completed infusion iw 17:08 Drug: hydrALAZINE IVP 10 mg IVP once Route: IVP; Site: right antecubital; iw 17:30 Follow up: Response: No adverse reaction; Blood pressure is lowered iw Medication: 16:15 VIS not applicable for this client. iw Outcome: 16:57 Discharge ordered by MD. abrams 17:27 Discharged to home ambulatory, with family, iw 17:27 Condition: good 17:27 Discharge instructions given to patient, family, Instructed on discharge instructions, follow up and referral plans. Demonstrated understanding of instructions, follow-up care, 17:28 Patient left the ED. jl7 Signatures: Dispatcher [employer] EDMS Elizabeth Oates, RN OZZY iw Chucho Montemayor RN RN jl7 Yaneth Grajeda RN RN ld1 Dari Tejeda 6 Socorro Ruiz RN RN cm10 Christie Chavez Alissa al6 Corrections: (The following items were deleted from the chart) 11:41 11:41 Allergies: PENICILLINS; 10 [facility] : Allergies: Sulfa (Sulfonamide Antibiotics); 10 [facility] : PMHx: Diabetes mellitus; 10 [facility] PMHx: History of urinary tract infection; 10 10
[2024-09-26] MEDS ORDERED: HYDRALAZINE HCL 20 MG/ML VIAL ONE (17:01)
[2024-09-26 17:53] VITALS: BP 148/96; TEMP 98.1; O2SAT 100
--- NOTE | 2024-09-27 12:35 | EKG ---
Test Date: 2024-09-26 Test Time: 11:35:54 Integrated Marketing Intern: SHANNAN MEASUREMENT RESULTS: Intervals: Rate: 109 NH: 146 QRSD: 66 QT: 324 QTc: 436 [place]: P: 38 NH: 146 QRS: 31 T: -15 INTERPRETIVE STATEMENTS: Sinus tachycardia T wave abnormality, consider inferior ischemia Abnormal ECG No previous ECG available for comparison Electronically Signed On 09-27-24 12:32:50 CDT by Lincoln Mujica
== END 2024-09-26 17:28 | disposition home or self-care (01) ==
LOC: ER 11:13
DX: R07.9 Chest pain, unspecified (principal); I10 Essential (primary) hypertension; N17.9 Acute kidney failure, unspecified; E11.9 Type 2 diabetes mellitus without complications
CPT/HCPCS: 36415; 71045; 80048; 80076; 83735; 83880; 84484; 85025; 85379; 93005; 96361; 96374; 99285; J0360; J7030